=== PATIENT | female | born 1985 | race African-American/Black ===

== ENCOUNTER 2025-06-09 21:45 | Emergency (ER) | payer BC ==
[~2025-06-09] VITALS: Ht 162.6 cm; Wt 68.9 kg
[2025-06-09] MEDS ORDERED: IBUP-1490 PO (23:25)
[2025-06-10 00:13] VITALS: BP 120/65; TEMP 98; O2SAT 97
== END 2025-06-10 00:14 | disposition home or self-care (01) ==
LOC: ER 21:52
DX: S92.515A Nondisplaced fracture of proximal phalanx of left lesser toe(s), initial encounter for closed fracture (principal); Z60.2 Problems related to living alone; W22.03XA Walked into furniture, initial encounter; Y93.89 Activity, other specified; Y92.89 Other specified places as the place of occurrence of the external cause; Y99.8 Other external cause status
CPT/HCPCS: 73660-TC